=== PATIENT | male | born 1985 | race Caucasian/White ===

== ENCOUNTER 2024-12-19 17:14 | Emergency (ER) | payer BC, SELFPAY ==
--- OUTSIDE RECORDS SUMMARY | 2024-12-19 17:15 | XMS_ITS | Referral Summary ---
Author Organization [address] Address [address] [place] [address] Care Team Providers Care [place]rier Name Role Phone Flaca Henderson NP Primary Care Provider [phone] Allergies Active Allergy Reactions Criticality Noted Date Comments Amoxicillin Other (See comments) Low 12/11/2018 Stomach pain Medications tadalafiL (Cialis) 5 mg tabletIndicatio ns:Impotence of organic origin Take 1 tablet (5 mg total) by mouth daily 30 tablet 3 0 Active fluocinonide emollient 0.05 % cream fluocinonide-e mollient 0.05 % topical cream APPLY TOPICALLY TO THE AFFECTED AREA TWICE DAILY Active fluocinonide emollient 0.05 % cream APPLY TOPICALLY TO THE AFFECTED AREA TWICE DAILY 2 Active Active Problems Problem Noted Date Diagnosed Date Erectile dysfunction 09/28/2021 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 Overview (02/08/2017): Erectile dysfunction, unspecified erectile dysfunction type Acute gastritis 10/03/2016 Overview (02/08/2017): Other acute gastritis without hemorrhage Immunizations Name Administration Dates Next Due Influenza, Quadrivalent, Spl it, Preservative Free, Intramuscular 08/16/2016,09/15/2015 Influenza, Unspecified 08/05/2019,08/05/2018,11/2016 Social History Tobacco Use Types Packs/Day Years Used Date Smoking Tobacco: Never Smokeless Tobacco: Never Alcohol Use Standard Drinks/Week Comments Yes 0 (1 standard drink = 0.6 oz pur e alcohol) Occassional PHQ-2 Answer Date Recorded PHQ-2 Total Score (If total score is 3 or more points, staff should administer the PHQ-9) 0 06/07/2020 Sex and Gender Information Value Date Recorded Sex Assigned at Not on file Legal Sex Male 2:29 AM RESOURCE COORDINATOR Gender Identity Not on file Sexual Orientation Not on file 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 Not on file Not on file Not on file Last Filed Vital Signs Vital Sign Reading Time Taken Comments Blood Pressure 127/87 07/07/2022 10:18 AM CDT Pulse 76 07/07/2022 10:18 AM CDT Temperature 36.4 C (97.6 F) 06/07/2020 1:06 PM CDT Respiratory Rate 18 12/11/2018 2:45 PM RESOURCE COORDINATOR Oxygen Saturation 97% 06/07/2020 1:06 PM CDT Inhaled Oxygen Concentration - - Weight 68.8 kg (151 lb 9.6 oz) 07/07/2022 10:18 AM CDT Height 175.3 cm (5' 9 ) 07/07/2022 10:18 AM CDT Body Mass Index 22.39 07/07/2022 10:18 AM CDT Plan of Treatment Not on file Insurance Care Teams [place] Relationship Specialty Start Date End Date Flaca Henderson NP PCP - General Internal Medicine 05/22/22
--- OUTSIDE RECORDS SUMMARY | 2024-12-19 17:16 | XMS_ITS | Data Portability ---
Author Organization [facility] Noah, Main Office Address [address] [place] [address] Assessment No assessment recorded. Plan of Treatment Reminders Order Date Submit Date Provider Last Modified By Organization Details Last Modified Time Details Appointments None recorded. Lab lipid panel, serum 2022 023 [facility] (Lab), [address] [place], [address], 3 20:35:39 urinalysis , complete 2022 023 [facility] (Lab), [address] [place], [address], 3 08:49:07 CMP, serum or plasma 2022 023 [facility] (Lab), [address] [place], [address], 3 20:35:44 CBC 2022 023 [facility] (Lab), [address] [place], [address], 3 19:09:12 Referral None recorded. Procedures None recorded. Surgeries None recorded. Imaging None recorded. Medication Orders Cialis 5 mg tablet 2022 023 [facility], [facility] , [place], [address], 3 16:04:10 Patient TargetsNo targets recorded. Patient InstructionsNo instructions recorded. Reason for Referral None Reported. Results Created Date Observation Date Name Description Value Unit Range Abnormal Flag Note LastModifiedBy Organization Detail LastModifiedTime 06/12/2006/12/2023 CBC W/O DIFFE RENTI AL white blood cells 6.1 x10'3 /uL 4.2-10 .8 Not Available [facility] (Lab) [address] [place], [address], 06/12/2023 19:09:12 06/12/20 23 06/12/2023 CBC W/O DIFFE RENTI AL red blood cells 4.52 x10'6 /uL 4.10-5 .80 Not Available [facility] (Lab) [address], [address], 06/12/2023 19:09:12 06/12/20 23 06/12/2023 CBC W/O DIFFE RENTI AL hemoglobin 13.9 g/dL 13.2-1 7.0 Not Available [facility] (Lab) [address] [place], [address], 06/12/2023 19:09:12 06/12/20 23 06/12/2023 CBC W/O DIFFE RENTI AL hematocrit 42.1 % 39.3-5 0.0 Not Available [facility] (Lab) [address] [place], [address], 06/12/2023 19:09:12 06/12/20 23 06/12/2023 CBC W/O DIFFE RENTI AL mean red cell volume 93.1 fL 80.0-9 7.0 Not Available [facility] (Lab) [address] [place], [address], 06/12/2023 19:09:12 06/12/20 23 06/12/2023 CBC W/O DIFFE RENTI AL mean red cell hemoglobin 30.8 pg 27.0-3 3.0 Not Available [facility] (Lab) [address], [address], 06/12/2023 19:09:12 06/12/20 23 06/12/2023 CBC W/O DIFFE RENTI AL mean RBC HGB concentratio n 33.0 g/dL 31.0-3 6.0 Not Available [facility] (Lab) [address] [place], [address], 06/12/2023 19:09:12 06/12/20 23 06/12/2023 CBC W/O DIFFE RENTI AL red cell distribution width 12.8 % 11.8-1 5.5 Not Available [facility] (Lab) [address] [place], [address], 06/12/2023 19:09:12 06/12/20 23 06/12/2023 CBC W/O DIFFE RENTI AL platelets 324 x10'3 /uL 150-40 0 Not Available [facility] (Lab) [address] [place], [address], 06/12/2023 19:09:12 06/12/20 23 06/12/2023 CBC W/O DIFFE RENTI AL mean platelet volume 10.5 fL 9.0-12 .4 Not Available [facility] (Lab) [address] [place], [address], 06/12/2023 19:09:12 06/12/20 23 06/12/2023 URINA LYSIS COMPL ETE, IRIS color LIGHT- YELLOW Not Available [facility] (Lab) [address] [place], [address], 06/12/2023 19:18:08 06/12/20 23 06/12/2023 URINA LYSIS COMPL ETE, IRIS appear CLEAR Not Available [facility] (Lab) [address] [place], [address], 06/12/2023 19:18:08 06/12/20 23 06/12/2023 URINA LYSIS COMPL ETE, IRIS specific gravity 1.016 1.001- 1.030 Not Available [facility] (Lab) [address] [place], [address], 06/12/2023 19:18:08 06/12/20 23 06/12/2023 URINA LYSIS COMPL ETE, IRIS pH 5.5 pH_un its 5.0-9. 0 Not Available [facility] (Lab) [address] [facility] [place], [address], 06/12/2023 19:18:08 06/12/20 23 06/12/2023 URINA LYSIS COMPL ETE, IRIS leukocytes NEGATI VE albert/u L negati ve- Not Available [facility] (Lab) [address] [place], [address], 06/12/2023 19:18:08 06/12/20 23 06/12/2023 URINA LYSIS COMPL ETE, IRIS nitrite NEGATI VE negati ve- Not Available [facility] (Lab) [address] [place], [address], 06/12/2023 19:18:08 06/12/20 23 06/12/2023 URINA LYSIS COMPL ETE, IRIS protein NEGATI VE mg/dL negati ve- Not Available [facility] (Lab) [address] [place], [address], 06/12/2023 19:18:08 06/12/20 23 06/12/2023 URINA LYSIS COMPL ETE, IRIS glucose NORMAL mg/dL normal - Not Available [facility] (Lab) [address] [place], [address], 06/12/2023 19:18:08 06/12/20 23 06/12/2023 URINA LYSIS COMPL ETE, IRIS ketones NEGATI VE mg/dL negati ve- Not Available [facility] (Lab) [address] [place], [address], 06/12/2023 19:18:08 06/12/20 23 06/12/2023 URINA LYSIS COMPL ETE, IRIS urobilinogen NORMAL mg/dL normal - Not Available [facility] (Lab) [address] [place], [address], 06/12/2023 19:18:08 06/12/20 23 06/12/2023 URINA LYSIS COMPL ETE, IRIS bilirubin NEGATI VE mg/dL negati ve- Not Available [facility] (Lab) [address] [place], [address], 06/12/2023 19:18:08 06/12/20 23 06/12/2023 URINA LYSIS COMPL ETE, IRIS blood NEGATI VE mg/dL negati ve- Not Available [facility] (Lab) [address] [place], [address], 06/12/2023 19:18:08 06/12/20 23 06/12/2023 URINA LYSIS COMPL ETE, IRIS white blood cells 0-8 /i??h pfi?? 0-8 Not Available [facility] (Lab) [address] [place], [address], 06/12/2023 19:18:08 06/12/20 23 06/12/2023 URINA LYSIS COMPL ETE, IRIS red blood cells 0-4 /i??h pfi?? 0-4 Not Available [facility] (Lab) [address] [place], [address], 06/12/2023 19:18:08 06/12/20 23 06/12/2023 URINA LYSIS COMPL ETE, IRIS bacteria NONE Not Available [facility] (Lab) [address] [place], [address], 06/12/2023 19:18:08 06/12/20 23 06/12/2023 URINA LYSIS COMPL ETE, IRIS mucous OCCASI ONAL /i??l pfi?? abnormal Not Available [facility] (Lab) [address] [place], [address], 06/12/2023 19:18:08 06/12/20 23 06/12/2023 URINA LYSIS COMPL ETE, IRIS squamous epithelial NONE /i??l pfi?? abnormal Not Available [facility] (Lab) [address] [place], [address], 06/12/2023 19:18:08 06/12/20 23 06/12/2023 LIPID PANEL cholesterol 202 mg/dL 140-19 9 high NIH NOVA NSUS RECOM MENDA TION FOR JOE STERO L: ADULT CHILD LOW RISK: <200 <170 BORDE RLINE : <200- 239 ----- HIGH RISK: >240 >200 Not Available [facility] (Lab) [address] [place], [address], 06/12/2023 20:35:38 06/12/20 23 06/12/2023 LIPID PANEL triglyceride s 47 mg/dL 0-150 NIH NOVA NSUS REPOR T RECOM MENDA TION FOR TRIGL YCERI RASHIDA: ADULT CHILD LOW RISK: <150 ----- BODER LINE: 150-1 99 ----- HIGH RISK: >200 ----- Not Available [facility] (Lab) [address] [place], [address], 06/12/2023 20:35:38 06/12/20 23 06/12/2023 LIPID PANEL HDL cholesterol 75 mg/dL 40- Not Available [facility] (Lab) [address] [place], [address], 06/12/2023 20:35:38 06/12/20 23 06/12/2023 LIPID PANEL LDL cholesterol, calculated 118 mg/dL 0-130 NIH NOVA NSUS REPOR T RECOM MENDA TIONS FOR LDL: ADULT CHILD LOW RISK <130 <110 (OPTI MAL LDL) <100 ----- BORDE RLINE : 130-1 59 ----- HIGH RISK: >160 >130 A TRIGL YCERI DE RESUL T >400 INVAL IDATE S THE CALCU LATIO N FOR LDL FRACT IONAT ION - THE LDL RESUL T WILL NOT BE REPOR . Not Available [facility] (Lab) [address] [place], [address], 06/12/2023 20:35:38 06/12/20 23 06/12/2023 COMPR EHENS LEIF METAB OLIC PANEL sodium 137 mmol/ L 137-14 5 Not Available [facility] (Lab) [address] [place], [address], 06/12/2023 20:35:44 06/12/20 23 06/12/2023 COMPR EHENS LEIF METAB OLIC PANEL potassium 4.4 mmol/ L 3.5-5. 1 Not Available [facility] (Lab) [address] [place], [address], 06/12/2023 20:35:44 06/12/20 23 06/12/2023 COMPR EHENS LEIF METAB OLIC PANEL chloride 102 mmol/ L 98-107 Not Available [facility] (Lab) [address] [place], [address], 06/12/2023 20:35:44 06/12/20 23 06/12/2023 COMPR EHENS LEIF METAB OLIC PANEL carbon dioxide 26 mmol/ L 22-30 Not Available [facility] (Lab) [address] [place], [address], 06/12/2023 20:35:44 06/12/20 23 06/12/2023 COMPR EHENS LEIF METAB OLIC PANEL anion gap 13.4 mmol/ L 14-22 low Not Available [facility] (Lab) [address] [place], [address], 06/12/2023 20:35:44 06/12/20 23 06/12/2023 COMPR EHENS LEIF METAB OLIC PANEL glucose 77 mg/dL 70-99 Not Available [facility] (Lab) [address] [place], [address], 06/12/2023 20:35:44 06/12/20 23 06/12/2023 COMPR EHENS LEIF METAB OLIC PANEL BUN 9 mg/dL 8-19 Not Available [facility] (Lab) [address] [facility] [place], [address], 06/12/2023 20:35:44 06/12/20 23 06/12/2023 COMPR EHENS LEIF METAB OLIC PANEL creatinine 0.98 mg/dL 0.66-1 .25 Not Available [facility] (Lab) [address] [place], [address], 06/12/2023 20:35:44 06/12/20 23 06/12/2023 COMPR EHENS LEIF METAB OLIC PANEL GFR >60 Refer ence Range : [place] GFR Healt hy Adult : >60 mL/mi n/1.7 3 m2 Chron ic Kidne y Disea se: 15-60 mL/mi n/1.7 3 m2 Kidne y Failu re: <15/m L/min /1.73 m2 www.n iddk. nih.g ov The MDRD study equat ion has not been valid ated in child petra <18 years of age; pregn ant women ; the elder ly >85 years of age; or in some racia l or ethni c subgr oups, such as [facility] nics. Outsi de the valid ated kun eters , estim ated GFR is less accur ate, requi ring clini adrienne judgm ent on a case- by-ca se basis . Clini adrienne inter preta tion for other races and ages must be made by the clini seb. The MDRD study equat ion has not been valid ated for the evalu ation of serum creat inine relat ed to nutri derek l statu s or medic ation usage . For perso ns <18 years of age, a pedia tric GFR calcu lator is avail able on the [facility] websi te: https ://john armstrong rg/pr ofess ional s/kdo qi/gf r_cal culat or Not Available [facility] (Lab) [address] [place], [address], 06/12/2023 20:35:44 06/12/20 23 06/12/2023 COMPR EHENS LEIF METAB OLIC PANEL alkaline phosphatase 68 U/L 38-126 Not Available [facility] (Lab) [address] [place], [address], 06/12/2023 20:35:44 06/12/20 23 06/12/2023 COMPR EHENS LEIF METAB OLIC PANEL alanine aminotransfe rase 18 U/L 0-50 Not Available [facility] (Lab) [address] [place], [address], 06/12/2023 20:35:44 06/12/20 23 06/12/2023 COMPR EHENS LEIF METAB OLIC PANEL aspartate aminotransfe rase 32 U/L 15-46 Not Available [facility] (Lab) [address] [place], [address], 06/12/2023 20:35:44 06/12/20 23 06/12/2023 COMPR EHENS LEIF METAB OLIC PANEL bilirubin, total 0.90 mg/dL 0.20-1 .30 Not Available [facility] (Lab) [address] [place], [address], 06/12/2023 20:35:44 06/12/20 23 06/12/2023 COMPR EHENS LEIF METAB OLIC PANEL calcium 9.5 mg/dL 8.4-10 .2 Not Available [facility] (Lab) [address] [place], [address], 06/12/2023 20:35:44 06/12/20 23 06/12/2023 COMPR EHENS LEIF METAB OLIC PANEL total protein 7.7 g/dL 6.3-8. 2 Not Available [facility] (Lab) [address] [place], [address], 06/12/2023 20:35:44 06/12/20 23 06/12/2023 COMPR EHENS LEIF METAB OLIC PANEL albumin 4.8 g/dL 3.4-5. 0 Not Available [facility] (Lab) [address] [place], [address], 06/12/2023 20:35:44 06/12/20 23 06/12/2023 COMPR EHENS LEIF METAB OLIC PANEL globulin 2.9 g/dL 2.6-4. 2 Not Available [facility] (Lab) [address] [place], [address], 06/12/2023 20:35:44 06/12/20 23 06/12/2023 COMPR EHENS LEIF METAB OLIC PANEL A/G ratio 1.7 ratio 1.0-2. 0 Not Available [facility] (Lab) [address] [place], [address], 06/12/2023 20:35:44 Result Notes None recorded. Problems Name Problem SNOMED Code Status Onset Date Resolution Date Notes Provider Name and Address Organization Details Recorded Time Erectile dysfunction 835589209 Active 2020 Not Available [facility] 23:58:58 Lipoma of back 070267930 Active 2022 SHELBY Tapia [address] [facility], [place], [address] , [facility] 15:12:24 Problem Notes None recorded. Procedures Surgical History Date Name Laterality Status Provider Name and Address Organization Details Recorded Time Jackhorn Teeth completed Not Available [facility] 01/03/2023 23:57:47 Appendectomy completed Not Available [facility] 01/03/2023 23:57:47 Vasectomy completed Not Available [facility] 0 01/03/2023 23:57:47 Imaging Results None recorded. Procedure Notes None recorded. Medical Equipment None Reported. Allergies Allergen ID Allergen Name Allergen Category Reaction Reaction Severity Criticality Documentation Date Start Date Code Code System Note Provider Name and Address Organization Details Recorded Time 23911 amoxicill in medicatio n abdominal pain severe Not available 01/04/2023 723 RxNorm Not Available [facility] 3 00:00:18 Medications Name Sig Start Date Stop Date Status Note LastModified by Organization Details LastModified Time azithromyci n 250 mg tablet TAKE 2 TABLETS (500 MG) BY ORAL ROUTE ONCE DAILY FOR 1 DAY THEN 1 TABLET (250 MG) BY ORAL ROUTE ONCE DAILY FOR 4 DAYS active Not Available Not Available No t Available benzonatate 200 mg capsule TAKE 1 CAPSULE BY MOUTH THREE TIMES DAILY 06/12 completed Not Available Not Available Not Available prednisone 20 mg tablet Take 2 tablets every day by oral route for 5 days. 06/12 completed Not Available Not Available Not Available meclizine 25 mg tablet Take 1 tablet 3 times a day by oral route as needed. active Not Available Not Available No t Available fluticasone propionate 50 mcg/actuati on nasal spray,suspe nsion USE 1 SPRAY IN EACH NOSTRIL EVERY DAY 12/06 completed Not Available Not Available Not Available tadalafil 5 mg tablet active Not Available Not Available No t Available tadalafil 10 mg tablet Take 1 tablet every day by oral route for 90 days. 06/13 completed Not Available Not Available Not Available fluocinonid e-emollient 0.05 % topical cream APPLY TOPICALLY TO THE AFFECTED AREA TWICE DAILY active Not Available Not Available No t Available Vitals Date Recorded Body mass index (BMI) Body mass index (BMI) Body mass index (BMI) Body height Body height Body height Oxygen saturation Oxygen saturation in Arterial blood by Pulse oximetry Oxygen saturation Oxygen saturation in Arterial blood by Pulse oximetry Heart rate Body temperature Body temperature Body weight Body weight Body weight Systolic blood pressure Diastolic blood pressure Systolic blood pressure Diastolic blood pressure Provider Name and Address Organization Details Last Updated DateTime 3 23 kg/m2 22.6 kg/m2 22.2 kg/m2 175.26 cm 175.26 cm 175.26 cm 98 % 98 % 99 % 99 % 82 /min 98.4 [degF] 98.1 [degF] 42595.4 1 g 47092.6 3 g 16885.8 6 g 120 mm[Hg] 88 mm[Hg] 120 mm[Hg] 80 mm[Hg] Not Available [facility] 3 23:58:23 Date Recorded Body height Provider Name an d Address Organization Details Last Updated DateTime 02/05/2023 175.26 cm KIERA Gaines [place] [facility] 02/05/2023 15:04:10 Date Recorded Heart rate Oxygen saturation Oxygen saturation in Arterial blood by Pulse oximetry Body temperature Systolic blood pressure Diastolic blood pressure Provider Name and Address Organization Details Last Updated DateTime 3 91 /min 98 % 98 % 98.1 [degF] 124 mm[Hg] 80 mm[Hg] Sheryl Swan MA [place] [employer] [facility] 3 15:07:05 Date Recorded Body height Body mass index (BMI) Body weight Body temperature Heart rate Oxygen saturation Oxygen saturation in Arterial blood by Pulse oximetry Systolic blood pressure Diastolic blood pressure Provider Name and Address Organization Details Last Updated DateTime 3 175.26 cm 23.2 kg/m2 04229 g 98.3 [degF] 78 /min 98 % 98 % 120 mm[Hg] 78 mm[Hg] Flora Hernández RN [facility] 3 15:02:59 Social History Question Answer Notes LastModified by Organizat ion Details LastModified Time Tobacco Smoking Status Never Smoker Not Available [facility] 01/03/2023 23:57:22 What Is Your Level Of Alcohol Consumption? Moderate [id number] Information not available 01/03/2023 Do You Wear A Helmet When Biking? No MIGRATION.[id number] 1547 Information not available 01/03/2023 What Is Your Level Of Caffeine Consumption? None MIGRATION.[id number] Information not available 01/03/2023 In The 14 Days Before Symptom Onset, Have You Had Close Contact With A Laboratory-confir med COVID-19 While That Case Was Ill? No [id number] Information not available 01/03/2023 In The 14 Days Before Symptom Onset, Have You Had Close Contact With A Person Who Is Under Investigation For COVID-19 While That Person Was Ill? No [id number].[id number] 7306 Information not available 01/03/2023 What Type Of Diet Are You Following? REGULAR MIGRATION.[id number] 1198 Information not available 01/03/2023 What Is The Highest Grade Or Level Of School You Have Completed Or The Highest Degree You Have Received? 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 No MIGRATION.966545 5874 Information not available 01/03/2023 What Is The Fluoride Status Of Your Home? Unknown MIGRATION.158318 0170 Information not available 01/03/2023 Are There Any Guns Present In Your Home? No MIGRATION.509659 3738 Information not available 01/03/2023 Do You Use Insect Repellent Routinely? Yes MIGRATION.[id number] 2516 Information not available 01/03/2023 Where Do You Live? [facility] MIGRATION.843112 6122 Information not available 01/03/2023 Do You Have A Medical Power Of Commission Sales Associate? No MIGRATION.753239 7340 Information not available 01/03/2023 Do You Have Any Pets? Yes MIGRATION.953438 9563 Information not available 01/03/2023 What Is Your Relationship Status? MIGRATION.[id number] 6945 Information not available 01/03/2023 Do You Use Your Seat Belt Or Car Seat Routinely? Yes MIGRATION.297435 7918 Information not available 01/03/2023 Do You Have Smoke And Carbon Monoxide Detectors In Your Home? Yes MIGRATION.104546 3302 Information not available 01/03/2023 Are You Passively Exposed To Smoke? No MIGRATION.381560 6121 Information not available 01/03/2023 Are There Any Smokers In Your House? No MIGRATION.254083 5460 Information not available 01/03/2023 Do You Participate In Social Media? Yes MIGRATION.043576 9367 Information not available 01/03/2023 What Types Of Sporting Activities Do You Participate In? WOOD TURNING LATHE OPERATOR MIGRATION.207436 6255 Information not available 01/03/2023 Do You Feel Stressed (tense, Restless, Nervous, Or Anxious, Or Unable To Sleep At Night)? [id number] MIGRATION.909714 5267 Information not available 01/03/2023 Do You Use Any Illicit Or Recreational Drugs? No MIGRATION.385133 9704 Information not available 01/03/2023 Do You Use Sunscreen Routinely? Yes MIGRATION.964904 6644 Information not available 01/03/2023 Has Tobacco Cessation Counseling Been Provided? No MIGRATION.186685 1579 Information not available 01/03/2023 Have You Recently Traveled Abroad? No MIGRATION.442437 9609 Information not available 01/03/2023 Are You Currently In School? No MIGRATION.423302 0496 Information not available 01/03/2023 Do You Have Any Dietary Restrictions? No MIGRATION.176350 5215 Information not available 01/03/2023 Do You Or Have You Ever Used Any Other Forms Of Tobacco Or Nicotine? No MIGRATION.679699 4035 Information not available 01/03/2023 Sex: Unknown Functional Status Question Answer Note LastModified by Organizat ion Details LastModified Time What is your exercise level? Moderate [id number] Information not available 01/03/2023 Mental Status None recorded. Family History Relationship Description Onset Age of this Age Resolved Age Notes LastModified by Organization Details LastModified Time Paternal Grandmother Diabetes mellitus [id number] Not available 01/03/2023 23:57:50 Maternal Aunt Diabetes mellitus [id number].[id number] Not available 01/03/2023 23:57:51 Father Family history of malignant neoplasm [id number].[id number] Not available 01/03/2023 23:57:51 Paternal Uncle Family history of malignant neoplasm MIGRATION.[id number] Not available 01/03/2023 23:57:51 Medical History Condition Response BLINDNESS N CYSTITIS N RHEUMATIC FEVER N KIDNEY STONES N BLADDER PROBLEMS N Enlarged Prostate N MRSA N OTHER # 1 N POLIO N LUNG DISEASE/DISORDER N HISTORY OF DRUG ABUSE N RADIATION / CHEMOTHERAPY N COPD N Other # 2 N BLOOD DISEASES N SURGERY N EAR OR HEARING PROBLEMS N MUMPS N SHINGLES N FEMALE PROBLEMS / INFECTIONS N BOWEL PROBLEMS N DEPRESSION (INCLUDING POST ) N STROKE/TIA N THYROID DISEASE N ULCERS N BENIGN PROSTATIC HYPERPLASIA N MEASLES N CERVICALGIA N TB SKIN TEST N HYPOTENSION N MYOCARDIAL INFARCTION N PARAPELGIA N OBESITY N GERD/NAUSEA N ANEURYSM N URINARY/BLADDER/KIDNEY PROBLEMS N Increased Urination N CORONARY ARTERY DISEASE (CAD) N MENIERE'S DISEASE N ADDICTION CONCERNS N ENDOMETRIOSIS N USE OF BLOOD THINNERS N SKIN PROBLEMS N EMPHYSEMA N GASTROINTESTINAL DISORDER N MUSCLE,JOINT OR BONE PROBLEMS N GASTROINTESTINAL BLEEDING N BLOOD CLOTS N Difficulty Urinating N ASTHMA N CATARACTS N ERECTILE DYSFUNCTION N GI PROBLEMS N CHF N Low Testosterone N NEUROPATHY N INFERTILITY N AIDS/HIV N FRACTURES N CHEMOTHERAPY / RADIATION N VISION/EYE PROBLEMS N LIVER DISEASE N MALE HYPOGONADISM N HYPERTENSION N TOURETTE'S N ANXIETY DISORDER N BLOOD TRANSFUSION N ANEMIA/BLOOD DISORDER N CHRONIC EAR INFECTIONS N BRONCHITIS N TUBERCULOSIS N GLAUCOMA N FOOT PROBLEM N DIVERTICULITIS N SLEEP APNEA N CHICKENPOX N ALLERGIES/HAYFEVER N INFECTIOUS DISEASE N PROSTATE N HEART ARRHYTHMIA N INSOMNIA N HIGH CHOLESTEROL / HYPERLIPIDEMIA N EYE PROBLEMS N HYPERTHYROIDISM N UTI N EATING DISORDER N EDEMA N CHRONIC PAIN SYNDROME N HYPOTHYROIDISM N CONSTIPATION N CAROTID BLOCKAGE N BACK / NECK PROBLEMS N HAVE YOU BEEN HOSPITALIZED OR SEEN IN [facility] IN THE PAST YEAR ? N ATHEROSCLEROSIS N BREAST PROBLEMS N DIALYSIS N ECZEMA N FIBROMYALGIA N OSTEOPOROSIS N ARTHRITIS N NO SIGNIFICANT PAST MEDICAL HISTORY N APPENDICITIS N DIABETES, TYPE N BAD TEETH N PARKINSON N HEARTBURN / REFLUX N ADD/ADHD N AUTISM SPECTRUM DISORDER (ASD) N HEPATITIS / LIVER DISEASE N PULMONARY DISEASE N GOUT N SLEEP DISORDER N ALZHEIMER'S DISEASE N PAIN N DEMENTIA N HERPES N SEIZURES/EPILEPSY N HEADACHES/MIGRAINES N VASCULAR DISEASE N PACEMAKER N HEART MURMUR N DIZZINESS N KIDNEY DISEASE N HEART DISEASE/HEART PROBLEMS N SCARLET FEVER N MULTIPLE SCLEROSIS N MENTAL DISORDER/ILLNESS N DEVELOPMENTAL OR BEHAVIORAL DISORDERS N CANCER: SPECIFY N CARDIAC ARRHYTHMIA N PNEUMONIA N ANESTHESIA COMPLICATIONS N ATRIAL FIBRILLATION N Gall Stones N PULMONARY EMBOLISM N AUTOIMMUNE DISEASE N Immunizations Vaccine Type Date Status Note Provider Nam e and Address Organization Details Recorded Time COVID-19, mRNA, LNP-S, PF, 30 mcg/0.3 mL dose 01/07/2021 completed Not Available [facility] 3 00:00:11 COVID-19, mRNA, LNP-S, PF, 30 mcg/0.3 mL dose 12/10/2020 completed Not Available [facility] 3 00:00:11 Tdap 09/28/2021 completed Not Available [facility] 01/04/2023 00:00:11 Influenza, split virus, quadrivalent, PF 09/28/2021 completed Not Available [facility] 3 00:00:12 Past Encounters Encounter ID Performer Location Encounter Start Date Encounter Closed Date Diagnosis/Indication Diagnosis SNOMED-CT Code Diagnosis ICD10 Code Diagnosis Note [id number] [facility] potts [address] [place] [address] [address] [place] [address] 09/28/2021 00:00:00 09/28/2021 19:40:35 [id number] [facility] Casey vergarae [address] [facility] [address] [place] [address] 10/10/2021 00:00:00 10/10/2021 10:44:37 [id number] [facility] potts [address] [place] [address] [address] [place] [address] 10/26/2021 00:00:00 10/26/2021 12:32:01 [id number] [facility] [address] [address] 12/06/2021 00:00:00 12/06/2021 17:24:30 [id number] [facility] [address] [address] 06/13/2022 00:00:00 06/13/2022 15:26:24 [id number] [facility] potts [address] [place] [address] [place] [address] 08/28/2022 00:00:00 08/28/2022 12:26:19 [id number] Chaim Clark MD [facility] [address] [address] 02/05/2023 14:56:37 02/05/2023 15:10:32 Erectile dysfunction [id number] F52.21 Doing fine on daily cialis, he reports he sees regular med md and they know he is taking it. [id number] SHELBY Tapia [facility] potts [address] [place] [address] [address] [place] [address] 06/12/2023 14:54:28 06/12/2023 15:29:34 Adult health examination [id number] Z00.00 Z13.29 Z13.220 Z13.89 Z13.1 Z00.01 Adult Health Exam--Due for routine labs (CBC, CMP, Lipids, UA).--PSA check at 40yo-order ed--Colon screening at 45yo--Tdap recommende d q 10 years-up to date (09/28/21) --Flu recommende d yearly--CO VID-19 recommende d-complete d--Encoura ged yearly dental, vision, hearing screenings Lipoma of back [id number] D17.1 New problemPat ient with lipomatous lesion on physical exam, approx 3cm diam. Since pt not currently experienci ng any pain/disco mfort, no tx at this time. Pt to f/u if he or notice any change. Health Concerns Section Related Observation LastModified by Organization Detai ls LastModified Time None Recorded Concern Status LastModified by Organization Details LastModified Time None Recorded Advance Directives Directive None Recorded Payers Encounter Date Sequence Insurance Name Policy Number Policy Figueredo Covered Member ID Figueredo Member ID Guarantor Name 02/05/2023 1 [facility] [id number] Mack Birch Page [id number] Mack Birch Page 06/12/2023 1 [employer] [id number] Mack Birch Page [id number] Mack Eyal Page Notes Date Note Type Note Provider Name and Address Organization Details Recorded Time 2 text/html Erectile DysfunctionReported bypatient.Notes:Pt presents with long hx of partial erections and going down prior to ejaculation which occurs about 25% of the time. The rest of the time he is fine. He states he was anxious about it in the past, not so much now. No voiding complaints, no smoking. Not sure what started it. Cialis 5mg was useful but insurance would only pay for 6 a month. Not Available [facility] Josey Ellis [employer] Noah 12/06/2021 17:24:30 2 text/html Erectile DysfunctionReported bypatient.Notes:Pt presents with long hx of partial erections and going down prior to ejaculation which occurs about 25% of the time. The rest of the time he is fine. He states he was anxious about it in the past, not so much now. No voiding complaints, no smoking. Not sure what started it. Cialis 5mg was useful but insurance would only pay for 6 a month.06/13/22Pt is doing fine on daily cialis, no side effects. He tried stopping a few times and had to go back. Not Available [employer] 06/13/2022 15:26:24 3 text/html Erectile DysfunctionReported bypatient.Notes:Pt continues to do well with daily cialis, no side effects, he tries stopping every so often without luck Chaim Clark MD [address], [place], [address], [employer] 02/05/2023 15:16:15 3 text/html 1. Pt in office for annual well visit/physical.2. Pt states noticed a lump on the middle of his back. Pt states she noticed a few months ago. States lump isn't painful, not sure if it's changed or not. SHELBY Tapia [address], [place], [address], [employer] 06/12/2023 15:20:00
--- OUTSIDE RECORDS SUMMARY | 2024-12-19 17:16 | XMS_ITS | Clinical Summary ---
Author Organization [address] Address [address] [place] [address] Care Team Providers Care Online User Experience Strategist Name Role Phone Flaca Henderson NP Primary Care Provider [phone] Allergies Active Allergy Reactions Criticality Noted Date [...] Preservative Free, Intramuscular 08/16/2016,09/15/2015 Influenza, Unspecified 08/05/2019,08/05/2018,11/2016 Surgical History Surgery Date Site/Laterality Comments OTHER SURGICAL HISTORY Appendicitis: open appendectomy VASECTOMY Medical History Medical History Date Comments Hx Other Medical 1996 Appendicitis Hx Other Medical 2002 wisdom teeth Gastric reflux MRSA (methicillin resistant Staphylococcus aureu s) Family History Medical History Relation Name Comments Other Father 2 Pancreatic canc er; Other Mother 2 healthy; Other Paternal Grandmother 2 Type 2 DM; Relation Name Status Comments Father 1 Alive Father 2 Mother 1 Alive Mother 2 Paternal Grandmother 1 Alive Paternal Grandmother 2 Social History Tobacco Use Types Packs/Day Years [...] on file Legal 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 Gender Identity Not on file Sexual Orientation Not on file 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 Not on file Not on file Not on file Obstetrics History Last Filed Vital Signs Vital Sign Reading Time Taken Comments Blood Pressure 127/87 07/07/2022 10:18 AM CDT Pulse 76 07/07/2022 10:18 AM CDT Temperature 36.4 C (97.6 F) 06/07/2020 1:06 PM CDT Respiratory Rate 18 12/11/2018 2:45 PM REGIONAL EDUCATION COORDINATOR Oxygen Saturation 97% 06/07/2020 1:06 PM CDT Inhaled Oxygen Concentration - - Weight 68.8 kg (151 lb 9.6 oz) 07/07/2022 10:18 AM CDT Height 175.3 cm (5' 9 ) 07/07/2022 10:18 AM CDT Body Mass Index 22.39 07/07/2022 10:18 AM CDT Plan of Treatment Health Maintenance Due Date Last Done Comments Hepatitis C Screening 1985 Hepatitis B Screening 2003 Regular Well Visit/Exam 18-64 04/19/2018 04/19/2017 Depression Screening 06/07/2021 06/07/2020, 12/11/2018, 11/06/2017, Additional history exists Covid-19 Vaccine ( season) 2024 11/02/2021, 01/07/2021, 12/10/2020 Influenza Vaccine (#1) 2024 , 08/05/2019, 08/05/2018, Additional history exists DTaP/Tdap/Td Vaccine (2 - Td or Tdap) 09/28/2031 09/28/2021, 08/05/2002 HPV Vaccines Aged Out No longer eligi ble based on patient's age to complete this topic Pneumococcal vaccine <65 Aged Out No longer eligible based on patient's age to complete this topic Varicella Vaccines Discontinued Insurance Care Teams Online User Experience Strategist Relationship Specialty Start Date End Date Flaca Henderson NP PCP - General Internal Medicine 05/22/22
[2024-12-19 17:37] VITALS: BP 132/94; PULSE 79; RESP 16; TEMP 36.4; O2SAT 100
--- NOTE | 2024-12-19 21:20 | ED.WOUNDLAC ---
HPI - Wound/Laceration General Chief Complaint: Wound/Laceration Stated Complaint: left thumb lac Time Seen by Provider: 12/19/24 20:44 Source: patient Mode of arrival: ambulatory Limitations: no limitations History of Present Illness HPI narrative: Patient is a 39-year-old male who presents the ED with report of a laceration to his left thumb. Patient reports he sustained a laceration to the tip of his L thumb with a knife just prior to arrival. Still has some mild bleeding. Denies numbness. Denies any other injuries. Tetanus unknown. Related Data Allergies Allergy/AdvReac Type Severity Reaction Status Date / Time No Known Allergies Allergy Unverified 09/28/16 17:35 Review of Systems Review of Systems: All systems reviewed & are unremarkable except as noted in HPI. All systems reviewed & are unremarkable except as noted in HPI and below Exam Narrative: GENERAL: Well appearing, well-nourished, non-toxic, in no acute distress. HEAD: Normocephalic, atraumatic. RESPIRATORY: Airway patent, respirations nonlabored. CARDIOVASCULAR: Regular rate and rhythm MUSCULOSKELETAL: Moves all extremities. No gross deformities. SKIN: Warm, dry, normal color. Approx 0.5cm curvilinear laceration to distal finger pad tip of L thumb. No nail involvement. Minimal active bleeding. Sensation intact. Capillary refill intact. NEURO: A&O X3. Speech clear. PSYCHIATRIC: Appropriate mood and affect. Normal interaction. Course Vital Signs Vital signs: Vital Signs Temperature 97.6 F 12/19/24 17:37 Pulse Rate 79 12/19/24 17:37 Respiratory Rate 16 12/19/24 17:37 Blood Pressure 132/94 H 12/19/24 17:37 Pulse Oximetry 100 12/19/24 17:37 Temperature 97.6 F 12/19/24 17:37 Pulse Rate 79 12/19/24 17:37 Respiratory Rate 16 12/19/24 17:37 Blood Pressure 132/94 H 12/19/24 17:37 Pulse Oximetry 100 12/19/24 17:37 Procedures Laceration Laceration 1: Date: 12/19/24 Time: 21:00 Site: hand Side (If applicable): left (thumb) Size (cm): 0.5 Description: linear and flap Depth: simple, single layer Local Anesthetic: lidocaine 1% Amount of anesthesia used (mL): 5 Pre-repair: wound explored and irrigated ====== Skin Level ====== Skin layer closed with: nylon Size (cm): 5-0 Number of sutures: 3 Technique: simple, interrupted ====== Subcutaneous Layer ====== ====== Muscle Layer ====== ====== Tendon Layer ====== MDM - Wound/Laceration MDM Narrative Medical decision making narrative: Patient neurovascularly intact. Laceration repaired without complications. Tetanus updated in the ED. Patient given wound care instructions and return precautions. Medical Records Attestation: I reviewed the patient's medical records. Discharge Plan Discharge Clinical Impression: Laceration of left thumb Qualifiers: Encounter type: initial encounter Damage to nail status: without damage Foreign body presence: without foreign body Qualified Code(s): S61.012A - Laceration without foreign body of left thumb without damage to nail, initial encounter Patient Disposition: Home, Self-Care Condition: Stable Instructions: Antibiotic Form, Care For Your Stitches (ED), Laceration (ED) Additional Instructions: Return to the ED or visit an urgent care or your PCP for follow-up and wound check/suture removal in 10 to 14 days. Keep the wound as dry as possible for 24 hours. Bandage if needed. Wash wound daily with simple soap and water, but do not scrub. Return to the ED if you experience uncontrolled bleeding, fever, chills, pus-like drainage, or redness/swelling/warmth surrounding the wound, as these could be signs of an infection. Patient Language: Icelandic Follow-up/Referrals: Сергей,Dominic Dalton M.D. [Non-Staff] - Time of Disposition: 21:21
--- OUTSIDE RECORDS SUMMARY | 2024-12-19 21:33 | XMS_ITS | Referral Summary ---
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 file Not on file Not on file Last Filed Vital Signs Vital Sign Reading Time Taken Comments Blood Pressure 127/87 07/07/2022 10:18 AM CDT Pulse 76 07/07/2022 10:18 AM CDT Temperature 36.4 C (97.6 F) 06/07/2020 1:06 PM CDT Respiratory Rate 18 12/11/2018 2:45 PM RESTAURANT HOST Oxygen Saturation 97% 06/07/2020 1:06 PM CDT Inhaled Oxygen Concentration - - Weight 68.8 kg (151 lb 9.6 oz) 07/07/2022 10:18 AM CDT Height 175.3 cm (5' 9 ) 07/07/2022 10:18 AM CDT Body Mass Index 22.39 07/07/2022 10:18 AM CDT Plan of Treatment Not on file Insurance Care Teams Senior Payroll Administrator Relationship Specialty Start Date End Date Flaca Henderson NP PCP - General Internal Medicine 05/22/22
--- OUTSIDE RECORDS SUMMARY | 2024-12-19 21:33 | XMS_ITS | Clinical Summary ---
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
[2024-12-19] MEDS: TETANUS,DIPHTHERIA,AC PERTUSSIS ADULT (0.5 ML) BOOSTRIX IM (21:34)
== END 2024-12-19 21:46 | disposition home or self-care (01) ==
LOC: ANHED 21:31
PROVIDERS: Emergency Provider Physician Assistant; PCP Nurse Practitioner Family
DX: S61.012A Laceration without foreign body of left thumb without damage to nail, initial encounter (principal); Z23 Encounter for immunization; W26.0XXA Contact with knife, initial encounter
CPT/HCPCS: 12001; 90471; 90715; 99282; J2003